=== PATIENT | female | born 1980 | race Caucasian/White ===

== ENCOUNTER 2017-01-23 11:26 | Inpatient (IN) | payer OTHER ==
[~2017-01-23] VITALS: Ht 152.4 cm; Wt 90.8 kg
[2017-01-23] VITALS (9 sets, daily range): BP systolic 115–181; BP diastolic 59–119
--- NOTE | ~2017-01-23 | CON ---
[place], [place] REPORT OF CONSULTATION NAME: RADHA MUHAMMAD [facility] #: [id number] UNIT #: [id number] ROOM: 526 DOCTOR: MADELEINE MENDOZA MD BIRTHDATE: [birth year] DOS: 01/24/2017 PULMONARY CONSULTATION, EVALUATION AND MANAGEMENT CONSULTATION REQUESTED BY: Hospitalist services. REASON FOR CONSULTATION: To assess the patient for acute pneumonia. HISTORY OF PRESENT ILLNESS: This is a 37-year-old white female, unknown to me from the past, developed symptoms of severe hoarseness with associated symptoms of coughing and chest congestion. The symptoms have been discussed with the patient for a few days prior to assessment in the Emergency Room. Later on, the patient developed significant amount of shortness of breath with severe nonproductive cough. The patient has been hospitalized and currently being treated from 01/23/2017 for the current symptoms. She was noted with right middle lobe pneumonia per the chest x-ray. She stated the symptoms have been decreased. Denies symptoms of hemoptysis. REVIEW OF SYSTEMS: CONSTITUTIONAL: The patient described symptoms of fatigue, generalized weakness, as well as chills. There is no fever. EARS, NOSE AND THROAT: Hoarseness was discussed with the patient at this time. There were no symptoms of sore throat. There were no symptoms of postnasal drainage or epistaxis. CARDIOVASCULAR: Denies anginal pain, edema or pain of the lower extremities. GASTROINTESTINAL: Denies dysphagia, nausea, vomiting, diarrhea, abdominal pain, hematemesis, melena, hematochezia. History of gastroesophageal reflux was noted which is exacerbated by some foods such as pizza. GENITOURINARY: Denies dysuria, suprapubic pain, hematuria. MUSCULOSKELETAL: Denies acute joint pain, redness, or tenderness. SKIN: Denies lesions or rashes. CENTRAL NERVOUS SYSTEM: Denies dizziness, headache, diplopia or syncopal episodes. Remaining systems were reviewed with the patient, they were noted all negative. PAST MEDICAL HISTORY: Reported: 1. Hypertension. 2. Moderate obesity. 3. History of chronic nicotine dependence. PAST SURGICAL HISTORY: 1. Hernia repair. 2. D and C. SOCIAL HISTORY: The patient is . She has been known with history of tobacco use, 1 pack of cigarettes per day, for the past 15 years. She does not have any children. FAMILY HISTORY: Unknown. [place], [place] REPORT OF CONSULTATION NAME[facility]AD [facility] [id number] UNIT #: [id number] ROOM: 526 DOCTOR: CAMELIA BRUNO MD,MADELEINE BIRTHDATE: [birth year] HOME MEDICATIONS: Noted as: 1. Ventolin HFA inhaler p.r.n. use for shortness breath or wheezing. 2. Norvasc 10 mg p.o. daily. DRUG ALLERGIES: Noted allergy to PENICILLINS. PHYSICAL EXAMINATION: GENERAL: This is a 37-year-old female who has been currently noted sitting on her bed without any distress, noted extreme severe hoarseness. Height of the patient recorded by the nursing staff at the time of current admission with height of 5 feet, weight of 200 pounds, BMI 39.0. VITAL SIGNS: Normal temperature, respiratory rate 20, heart rate of 95, blood pressure 170/84 to 160/98. Pulse oxygen saturation on room air 94% saturation recorded. HEENT: Head was atraumatic. Eyes nonicterus. NECK: Supple. CARDIOVASCULAR: S1, S2 audible. LUNGS: The patient was noted with general reduction in the breath sounds in the lungs bilaterally. ABDOMEN: Soft, obese. EXTREMITIES: No edema, clubbing, cyanosis. CENTRAL NERVOUS SYSTEM: No focal deficit. MUSCULOSKELETAL: No deformities. SKIN: No lesions or rashes. LABORATORY DATA: CBC of the patient that was done yesterday on admission, WBC count 20.6, hemoglobin and hematocrit normal, platelet count was normal. CMP of the patient of 01/23/2017 noted as glucose 105, BUN and creatinine were normal, potassium 3.3. The urine test of the patient was noted as negative. Chest x-ray of the patient, 2-views, shows evidence of moderate right middle lobe infiltration, ____ visible in the lateral view examination. CBC of the patient that was done this morning, WBC count 13.5, hemoglobin 13.3, hematocrit of 38.8, platelet count 318,000. The BMP of the patient was noted as glucose 152 and remaining BMP was normal. Alpha-1 antitrypsin level was also ordered by the primary care attending and noted at 158. There was no phenotyping done. IMPRESSION: 1. The patient has been currently admitted to the hospital. The patient was noted with history of chronic nicotine dependence, who presented with current acute pneumonia with typical and atypical organisms to be considered. 2. Hoarseness, acute viral syndrome to be considered as well. 3. Chronic obesity and dependence on nicotine was also noted. 4. History of essential hypertension as well. PLAN OF TREATMENT: Order repeat chest x-ray in the morning to reassess the patient. Ordered the respiratory viral panel for this patient with nasopharyngeal wash as well to assess for any viral etiology of current symptoms, especially of hoarseness. Tobacco cessation has been addressed with the patient; she was offered a nicotine replacement patch, the patient stated [place], [place] REPORT OF CONSULTATION NAME: RADHA MUHAMMAD UNIT #: [id number] ROOM: 526 DOCTOR: CAMELIA BRUNO MD,MADELEINE BIRTHDATE: [birth year] she has no desire for smoking cigarettes and does not require to use those at this time. Based on the chest x-ray assessment of the patient yesterday, certainly discharge planning for this patient will be planned, most likely for discharge tomorrow. MADELEINE DENISE MD CM:CONSTR:REPORT OF CONSULTATION 1158 01/24/17 1345 interface
[2017-01-23] MEDS ORDERED: NORVASC10 MG PO (11:41)
[2017-01-23 12:17] LABS: BASO # 0.1 10*3/uL (0.0-0.1); BASO % 0.3 % (0.0-1.0); EOS % 0.2 % (1.0-4.0); HEMOGLOBIN 14.8 g/dl (12.0-16.0); IG # 0.2 10*3/uL (0.0-0.1); LYMPH % 14.3 % (27.0-41.0); MEAN CELL VOLUME 98.1 fl (81.0-99.0); MEAN CORPUSCULAR HGB 34.6 pg (27.0-31.0); MEAN CORPUSCULAR HGB CONC 35.2 g/dl (33.0-37.0); MEAN PLATELET VOLUME 8.8 fl (9.6-12.3); MONO # 0.8 10*3/uL (0.1-1.0); NEUT # 16.5 10*3/uL (2.3-7.9); NEUT % 80.2 % (47.0-73.0); NUCLEATED RED BLOOD CELL 0.1 % (0.0-0.0); PLATELET COUNT AUTOMATED 376 10*3/uL (130-400); RED BLOOD COUNT 4.28 10*6/uL (4.10-5.10); RED CELL DISTRI WIDTH 12.8 % (0-14.5); WHITE BLOOD COUNT 20.6 10*3/uL (4.8-10.8)
[2017-01-23 12:31] LABS: ALBUMIN 3.5 gm/dl (3.1-4.5); ALKALINE PHOSPHATASE 62 U/L (45-117); BILIRUBIN, TOTAL 0.2 mg/dl (0.2-1.0); BUN 7 mg/dl (7-24); CARBON DIOXIDE 25 mmol/L (21-32); CHLORIDE 106 mmol/L (98-107); EST GLOM FILT AFRICAN AMERICAN > 60 ml/min; GLUCOSE 105 mg/dL (65-99); POTASSIUM 3.3 mmol/L (3.5-5.1); SGOT/AST 23 IU/L (3-35); SGPT/ALT 28 U/L (12-78); SODIUM 144 mmol/L (136-145); TOTAL PROTEIN 7.9 gm/dL (6.4-8.2)
[2017-01-23] MEDS ORDERED: VENTOLIN H0.09 MG/AC INH (15:50)
[2017-01-23 18:52] LABS: CKMB 1.9 ng/ml (0.5-3.6)
[2017-01-24] VITALS: BP 170/84
[2017-01-24 00:30] LABS: CKMB 1.9 ng/ml (0.5-3.6)
[2017-01-24 06:25] LABS: BASO % 0.2 % (0.0-1.0); HEMATOCRIT 38.8 % (37.0-47.0); HEMOGLOBIN 13.3 g/dl (12.0-16.0); IG # 0.3 10*3/uL (0.0-0.1); MEAN CELL VOLUME 100.3 fl (81.0-99.0); MEAN CORPUSCULAR HGB 34.4 pg (27.0-31.0); MEAN CORPUSCULAR HGB CONC 34.3 g/dl (33.0-37.0); MEAN PLATELET VOLUME 8.8 fl (9.6-12.3); MONO # 0.3 10*3/uL (0.1-1.0); MONO % 2.1 % (3.0-9.0); NEUT # 10.9 10*3/uL (2.3-7.9); NEUT % 80.6 % (47.0-73.0); NUCLEATED RED BLOOD CELL 0.2 % (0.0-0.0); PLATELET COUNT AUTOMATED 318 10*3/uL (130-400); RED BLOOD COUNT 3.87 10*6/uL (4.10-5.10); RED CELL DISTRI WIDTH 12.9 % (0-14.5); WHITE BLOOD COUNT 13.5 10*3/uL (4.8-10.8)
[2017-01-24 06:43] LABS: CKMB 2.2 ng/ml (0.5-3.6)
[2017-01-24 06:45] LABS: HEMOGLOBIN A1c 5.7 % (4.8-5.6)
[2017-01-24 06:58] LABS: BUN 7 mg/dl (7-24); CARBON DIOXIDE 24 mmol/L (21-32); CHLORIDE 106 mmol/L (98-107); CHOLESTEROL 122 mg/dL (<200); EST GLOM FILT AFRICAN AMERICAN > 60 ml/min; GLUCOSE 152 mg/dL (65-99); MAGNESIUM 2.2 mg/dL (1.5-2.1); PHOSPHOROUS 2.5 mg/dL (2.5-4.9); SODIUM 139 mmol/L (136-145); TRIGLYCERIDES 60 mg/dl (<150); VLDL CHOLESTEROL 12 mg/dL (6-40)
[2017-01-24 07:08] LABS: FREE T4 0.98 ng/dl (0.76-1.46); HDL CHOLESTEROL 44 mg/dl (40-60); LDL CHOLESTEROL 66 mg/dL (9-159); THYROID STIM HORMONE (HS) 0.462 uIU/ml (0.358-4.75)
[2017-01-24 08:00] VITALS: BP 160/98
[2017-01-24 12:00] VITALS: BP 182/120
[2017-01-24 13:46] VITALS: BP 178/110
[2017-01-24 16:00] VITALS: BP 152/82
[2017-01-24 20:00] VITALS: BP 158/87
[2017-01-25] VITALS: BP 140/92
[2017-01-25 08:00] VITALS: BP 170/100
[2017-01-25] MEDS ORDERED: PREDNISONE10 MG PO (09:51)
[2017-01-25] MEDS ORDERED: VITAMIN D1000 IU PO (09:51)
[2017-01-25] MEDS ORDERED: ALBUTEROL2.5 MG/0.5 INH (09:51)
[2017-01-25] MEDS ORDERED: DOXYCYCLINE100 M3 PO (09:51)
[2017-01-25] MEDS ORDERED: LOPRESSOR25 MG PO (09:51)
== END 2017-01-25 12:01 | disposition home or self-care (01) | DRG 871 ==
LOC: ED 11:26 → EDHOLD 14:07 → 5E 14:07
PROVIDERS: Physician Assistant; Student in an Organized Health Care Education/Training Program
DX: A41.9 Sepsis, unspecified organism (principal); J18.1 Lobar pneumonia, unspecified organism; E83.41 Hypermagnesemia; J44.0 Chronic obstructive pulmonary disease with (acute) lower respiratory infection; E87.6 Hypokalemia; I10 Essential (primary) hypertension; R73.9 Hyperglycemia, unspecified; F17.210 Nicotine dependence, cigarettes, uncomplicated; E66.01 Morbid (severe) obesity due to excess calories; Z81.1 Family history of alcohol abuse and dependence; Z88.0 Allergy status to penicillin; Z79.899 Other long term (current) drug therapy; Z68.38 Body mass index [BMI] 38.0-38.9, adult; Z71.6 Tobacco abuse counseling

== ENCOUNTER → 2017-02-04 | Outpatient (CLI) | payer OTHER ==
[~2017-02-04] MED LIST: ALBUTEROL2.5 MG/0.5 INH; DOXYCYCLINE100 M3 PO; LOPRESSOR25 MG PO; NORVASC10 MG PO; PREDNISONE10 MG PO; VENTOLIN H0.09 MG/AC INH; VITAMIN D1000 IU PO
== END | disposition home or self-care (01) ==
LOC: RAD 13:13
DX: J18.9 Pneumonia, unspecified organism (principal)

== ENCOUNTER → 2017-06-18 | Outpatient (CLI) | payer OTHER | LOC: US 15:00 → LAB 15:07 | DX: N73.9 Female pelvic inflammatory disease, unspecified (principal); N80.9 Endometriosis, unspecified; Z90.721 Acquired absence of ovaries, unilateral ==

== ENCOUNTER → 2017-10-13 | Outpatient (CLI) | payer OTHER | END | disposition home or self-care (01) | LOC: RAD 11:36 | DX: M25.511 Pain in right shoulder (principal) ==

== ENCOUNTER 2025-01-23 19:51 | Emergency (ER) | payer OTHER ==
[~2025-01-23] VITALS: Ht 152.4 cm; Wt 96.2 kg
[2025-01-23] MEDS ORDERED: ACETAMINOPHEN 325 MG TAB PO ONE (20:35)
[2025-01-23] MEDS ORDERED: Albuterol Sulf/Ipratropium 3 ML VIAL NEB ONE (20:35)
[2025-01-23] MEDS ORDERED: Codeine Phosphate/Guaifenesi 10 ML UDC PO ONE (20:35)
[2025-01-23] MEDS ORDERED: Dexamethasone Sodium Phospha 20 MG/5 ML VIAL IV ONE (20:35)
[2025-01-23] MEDS ORDERED: Ketorolac Tromethamine 30 MG/ML VIAL IV ONE (20:35)
[2025-01-23 20:51] LABS: BASO % 0.3 % (0.0-1.0); EOS # 0.2 10*3/uL (0.0-0.4); EOS % 1.6 % (1.0-4.0); HEMATOCRIT 39.7 % (37.0-47.0); MEAN CELL VOLUME 96.6 fl (81.0-99.0); MEAN CORPUSCULAR HGB 32.4 pg (27.0-31.0); MEAN CORPUSCULAR HGB CONC 33.5 g/dl (33.0-37.0); MEAN PLATELET VOLUME 8.8 fl (9.6-12.3); MONO # 0.7 10*3/uL (0.1-1.0); MONO % 5.2 % (3.0-9.0); NEUT # 10.6 10*3/uL (2.3-7.9); NEUT % 74.2 % (47.0-73.0); PLATELET COUNT AUTOMATED 322 10*3/uL (130-400); RED BLOOD COUNT 4.11 10*6/uL (4.10-5.10); RED CELL DISTRI WIDTH 13.7 % (0-14.5); WHITE BLOOD COUNT 14.3 10*3/uL (4.8-10.8)
[2025-01-23 21:09] LABS: BUN 9 mg/dl (9-23); CHLORIDE 101 mmol/L (98-107)
[2025-01-23] MEDS ORDERED: SODIUM CHLORIDE 0.9% 500 ML IV ONE (21:20)
[2025-01-23] MEDS ORDERED: Potassium Bicarbonate/Potass 25 MEQ TAB PO ONE (21:20)
[2025-01-23] MEDS ORDERED: ZITHROMAX250 MG PO (22:45)
[2025-01-23] MEDS ORDERED: METHOCARBAMOL750 M1 PO (22:45)
[2025-01-23] MEDS ORDERED: GUAIFENESIN AC473 M1 PO (22:45)
[2025-01-23] MEDS ORDERED: PREDNISONE20 M1 PO (22:45)
== END 2025-01-23 23:00 | disposition home or self-care (01) ==
LOC: ED 19:51
PROVIDERS: Emergency Medicine
DX: J20.8 Acute bronchitis due to other specified organisms (principal); Z20.822 Contact with and (suspected) exposure to COVID-19; R50.9 Fever, unspecified; E87.6 Hypokalemia; E66.9 Obesity, unspecified; F17.290 Nicotine dependence, other tobacco product, uncomplicated; Z88.0 Allergy status to penicillin; Z79.899 Other long term (current) drug therapy; Z98.890 Other specified postprocedural states

== ENCOUNTER 2025-02-08 18:34 | Emergency (ER) | payer OTHER ==
[~2025-02-08] VITALS: Ht 152.4 cm; Wt 105.2 kg
[~2025-02-08 18:34] MED LIST changes: +GUAIFENESIN AC473 M1 PO; +METHOCARBAMOL750 M1 PO; +PREDNISONE20 M1 PO; +ZITHROMAX250 MG PO
[2025-02-08] MEDS ORDERED: Ondansetron Hydrochloride 4 MG/2 ML VIAL IV ONE (19:25)
[2025-02-08] MEDS ORDERED: HYDROmorphONE Hydrochloride 0.5 MG/0.5 ML SYRINGE IV ONE (19:25)
[2025-02-08 19:46] LABS: BASO # 0.0 10*3/uL (0.0-0.1); BASO % 0.3 % (0.0-1.0); EOS # 0.3 10*3/uL (0.0-0.4); EOS % 2.7 % (1.0-4.0); MEAN CELL VOLUME 99.5 fl (81.0-99.0); MEAN CORPUSCULAR HGB 32.7 pg (27.0-31.0); MEAN PLATELET VOLUME 8.5 fl (9.6-12.3); MONO # 0.5 10*3/uL (0.1-1.0); MONO % 5.1 % (3.0-9.0); NEUT # 5.5 10*3/uL (2.3-7.9); NEUT % 54.2 % (47.0-73.0); NUCLEATED RED BLOOD CELL 0.0 % (0.0-0.0); NUCLEATED RED BLOOD CELL 0.0 10*3/uL (0.0-0.0); PLATELET COUNT AUTOMATED 291 10*3/uL (130-400); RED CELL DISTRI WIDTH 14.8 % (0-14.5)
[2025-02-08 20:08] LABS: BUN 8 mg/dl (9-23); SGPT/ALT 27 U/L (5-49)
[2025-02-08 20:33] LABS: BILIRUBIN Negative (Negative); BLOOD Negative (Negative); CLARITY Clear (Clear); COLOR Yellow (Yellow); KETONE Negative (Negative); LEUKO ESTERASE Negative (Negative); NITRITE Negative (Negative); PH 6.0 (4.5-8.0); SPECIFIC GRAVITY <= 1.005 (1.001-1.030); UROBILINOGEN 0.2 E.U./dl (0.0-1.0)
[2025-02-08 20:40] LABS: EPITHELIAL CELLS 0-2; WBC 0-2 wbc/hpf (0-5)
== END 2025-02-09 00:55 | disposition home or self-care (01) ==
LOC: ED 18:34
PROVIDERS: Emergency Medicine
DX: R73.9 Hyperglycemia, unspecified (principal); R10.32 Left lower quadrant pain; R11.0 Nausea; R19.7 Diarrhea, unspecified; I10 Essential (primary) hypertension; Z88.0 Allergy status to penicillin; Z79.899 Other long term (current) drug therapy; E66.01 Morbid (severe) obesity due to excess calories; Z68.30 Body mass index [BMI] 30.0-30.9, adult; Z98.890 Other specified postprocedural states; Z87.891 Personal history of nicotine dependence